=== PATIENT | male | born 1985 | race Caucasian/White ===

== ENCOUNTER 2017-12-01 21:56 | Emergency (ER) | payer BC, OTHER ==
[2017-12-01] MEDS ORDERED: NS 1,000 ML IV ONE (22:01)
--- NOTE | 2017-12-01 22:01 | EDPHY ---
H & P Time Seen by Provider: 12/01/17 21:59 HPI/ROS: Chief complaint. Hit in head with ball HPI. 32-year-old male presents emergency department by EMS after being hit with a softball just prior to arrival. The patient was off base and was sliding back into base. An opposing player through the softball trying to get are patient out. The ball hit the patient just behind the right ear. He was dazed but the home prior told me did not lose consciousness. He complains of headache and pain to the right side of his head. He had a collar placed on his cervical spine by EMS but he tells me has no neck pain. He denies any other injuries. No visual change. No injury to his mouth. ROS 10 systems were reviewed and negative with the exception of the elements mentioned in the history of present illness Past Medical/Surgical History: Dyslipidemia Social History: , nonsmoker, no alcohol Smoking Status: Never smoked Physical Exam: General Appearance: Alert well-developed male moderate distress vital signs are stable Eyes: Pupils equal and round no pallor or injection. ENT, no hemotympanum or Matson sign. Tenderness with some bruising behind the right ear. Respiratory: There are no retractions, lungs are clear to auscultation. Cardiovascular: Regular rate and rhythm. Gastrointestinal: Abdomen is soft and nontender, no masses, bowel sounds normal. Neurological: Awake and alert, sensory and motor exams grossly normal. Skin: Warm and dry, no rashes. Musculoskeletal: Neck is supple nontender. Extremities symmetrical, full range of motion. Psychiatric: Patient is oriented X 3, there is no agitation. Constitutional: Initial Vital Signs Temperature (C) 36.6 C 12/01/17 21:58 Heart Rate 73 12/01/17 21:58 Respiratory Rate 18 12/01/17 21:58 Blood Pressure 127/67 H 12/01/17 21:58 O2 Sat (%) 97 12/01/17 21:58 O2 Delivery Mode Room Air Allergies/Adverse Reactions: No Known Allergies Allergy (Unverified 05/17/13 21:12) Home Medications: Medication Instructions Recorded NK [No Known Home Meds] 12/01/17 Medical Decision Making - Diagnostics Imaging Results: Imaging Impressions Head CT 12/01/17 22:02 Impression: No acute intracranial findings. Findings discussed with ISIDRA KNIGHT 12/01/2017 at 22:30. Noncontrast CT head reviewed by me and discussed with Dr. Luque shows no skull fracture intracranial bleed Procedures: Cervical collar is removed by me as the patient tells me has no pain. Gentle palpation elicits no tenderness. Passive and active range of motion elicit no symptoms. The collar is discontinued by me at 9:55 p.m. ED Course/Re-evaluation: IV morphine and 1 L saline Re-evaluation at 11:15 p.m.. Patient is stable. He is feeling better. The patient and his and I discussed imaging study results, treatment plan including criteria for return and importance of follow-up and further evaluation. They expressed understanding and agreement Differential Diagnosis: I considered skull fracture, intracranial bleeding, concussion. - Data Points Medications Given: Discontinued Medications Sodium Chloride (Ns) 1,000 mls @ 0 mls/hr IV ONCE ONE; Wide Open PRN Reason: Protocol Stop: 12/01/17 22:02 Last Admin: 12/01/17 22:02 Dose: 1,000 mls Morphine Sulfate (Morphine) 6 mg IVP EDNOW ONE Stop: 12/01/17 22:02 Last Admin: 12/01/17 22:39 Dose: 6 mg Promethazine HCl (Phenergan) 25 mg IVP EDNOW ONE Stop: 12/01/17 22:46 Last Admin: 12/01/17 23:12 Dose: Not Given Departure - Departure Disposition: Home, Routine, Self-Care Clinical Impression: Concussion Qualifiers: Encounter type: initial encounter Loss of consciousness presence/duration: without LOC Qualified Code(s): S06.0X0A - Concussion without loss of consciousness, initial encounter Condition: Good Instructions: Concussion (ED) Additional Instructions: For the next 24 hr use ibuprofen (Advil) 600 mg every 6 hr. After 24 hr may use this on an as-needed basis Ice to sore area on your head next 24 hr No activity that may result in head injury for the next 7 days Return for worsening headache, confusion, vomiting Referrals: Patient,NotPresent [Unknown] - As per Instructions GERMAN WALLACE [Primary Care Provider] - 2-3 days, if not improved
[2017-12-01] MEDS ORDERED: PROMETHAZINE HCL 25 MG/ML INJ IVP ONE (22:45)
[2017-12-01] MEDS ORDERED: ONDANSETRON 4MG PREPACK#2 BTL TAKEHOME ONE (23:26)
[2017-12-01 23:35] VITALS: BP 120/89
== END 2017-12-01 23:34 | disposition home or self-care (01) ==
LOC: EDUNIT#
DX: S06.0X0A Concussion without loss of consciousness, initial encounter (principal); E78.5 Hyperlipidemia, unspecified; W21.03XA Struck by baseball, initial encounter; Y92.320 Baseball field as the place of occurrence of the external cause; Y93.64 Activity, baseball; E86.9 Volume depletion, unspecified
CPT/HCPCS: 96374; J2270